=== PATIENT | female | born 1995 | race Hispanic/Latino ===

== ENCOUNTER 2019-03-08 18:50 | Emergency (ER) | payer OTHER, SELFPAY ==
--- OUTSIDE RECORDS SUMMARY | 2019-03-08 18:52 | XMS REPORT | Summary of Care ---
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 Primary Care Provider Reason for Visit Reason Comments NEXPLANON Removal Encounter Details Date Type Department Care Team Description 11/12/2018 Office Visit [facility]- Kenny Gaspar Encounter for surveillance of implantable subdermal contraceptive (Primary Dx); ANDREINA Garcia Nexplanon removal; [address] [place] [address] OCP (oral contraceptive pills) [place] [address] [place], [place] [id number] Allergies No Known Allergiesdocumented as of this encounter (statuses as of 11/13/2018) Medications Medication Sig Dispensed Refills Start Date End Date Status norgestimate-ethinyl Take 1 tablet by 1 Package 3 11/12/2018 Active estradiol (ORTHO mouth daily. TRI-CYCLEN, 28,) 0.18/0.215/0.25 mg-35 mcg (28) tabletIndications: OCP (oral contraceptive pills) initiation documented as of this encounter (statuses as of 11/13/2018) Active Problems Problem Noted Date Encounter for surveillance of implantable subdermal contraceptive 11/08/2018 Class 3 severe obesity with body mass index (BMI) of 40.0 to 44.9 in 2018 adult, unspecified obesity type, unspecified whether serious comorbidity present BMI 40.0-44.9, adult 11/08/2018 Well woman exam 08/24/2017 Nexplanon removal 08/24/2017 Obesity (BMI 30-39.9) 08/24/2017 documented as of this encounter (statuses as of 11/13/2018) Resolved Problems Problem Noted Date Resolved Date Vaginal bleeding before 22 weeks gestation 04/13/2015 08/24/2017 BV (bacterial vaginosis) 04/13/2015 05/16/2015 Supervision of high-risk with insufficient 03/22/2015 08/24/2017 care Obesity complicating 03/22/2015 08/24/2017 Uncertain dates, antepartum 03/22/2015 08/24/2017 Multiparity 03/22/2015 08/24/2017 Abnormal maternal glucose tolerance, antepartum 06/27/2013 03/22/2015 Overview: 1 hr- 146, 3 hr- passed Rubella non-immune status, antepartum 06/27/2013 03/22/2015 Maternal varicella, non-immune 06/27/2013 03/22/2015 Supervision of normal 06/26/2013 03/22/2015 Nausea and vomiting in 06/26/2013 03/22/2015 Overview: Patient recent ER visit records from July 12, 2013. HPI: abdominal cramps after eating x 2 days Patient given Bentyl Oral 10mg po once and IV NS bolus Labs reviewed; WNL Beta over 79,351 Discharged with Dentyl 10 mg PRN q6h for abdominal cramping and Lactulose 30ml PO BID Ketonuria 06/26/2013 09/11/2013 documented as of this encounter (statuses as of 11/13/2018) Immunizations Name Administration Dates Next Due TDAP (ADACEL) VACCINE 05/29/2015 documented as of this encounter Social History Tobacco Use Types Packs/Day Years Used Date Never Smoker Smokeless Tobacco: Never Used Alcohol Use Drinks/Week oz/Week Comments No 0 Standard drinks or equivalent 0.0 Sex Assigned at Date Recorded Not on file Job Start Date Occupation Industry Not on file Not on file Not on file Travel History Travel Start Travel End No recent travel history available. documented as of this encounter Last Filed Vital Signs Vital Sign Reading Time Taken Comments Blood Pressure 117/80 11/12/2018 6:07 PM CDT Pulse 92 11/12/2018 6:07 PM CDT Temperature 36.7 C (98.1 F) 11/12/2018 6:07 PM CDT Respiratory Rate 16 11/12/2018 6:07 PM CDT Oxygen Saturation - - Inhaled Oxygen Concentration - - Weight 99.9 kg (220 lb 5 oz) 11/12/2018 6:07 PM CDT Height 154.9 cm (5' 1") 11/12/2018 6:07 PM CDT Body Mass Index 41.63 11/12/2018 6:07 PM CDT documented in this encounter Progress Notes Kenny Gaspar FNP - 11/12/2018 5:15 PM CDTNexplanon REMOVAL PROCEDURE NOTE Preoperative Diagnoses: Nexplanon Removal The risks, benefits and alternatives were discussed. The patient voiced her understanding. She wished to proceed and an informed consent was obtained. Patient has been identified by name and and will be undergoing Nexplanon removal. Patient is right handed. Patient, procedure and site have been confirmed by the following clinicians: ANDREINA Chatman and Elisa Lucas RN. Timeout performed by ANDREINA Cody at 5:46p.m.. Procedure: The patient is placed on the exam table in a supine position. The implant was palpated onthe inner aspect of the left arm. The Nexplanon implant site is prepped with Betadine. Local area isinjected subcutaneously with 2 cc of lidocaine 1% with epinephrine along the planned incision site. A small incision is made with a sterile scalpel. Curved hemostat is used to access the implant through the incision site. The implant is secured with the hemostat and carefully removed through the incision. There is minimal bleeding from the incision site. Sterile gauze and a pressure dressing is placed over the removal site. The patient tolerated the procedure well and there were no complications. Post-procedure instructions given. Patient verbalized understanding. Findings/Assessment Nexplanon removed without complaints. Patient visualized removal Plan Encounter for surveillance of implantable subdermal contraceptive (primary encounter diagnosis) Nexplanon removal OCP (oral contraceptive pills) initiation Comment: patient desires removal Plan: norgestimate-ethinyl estradiol (ORTHO TRI-CYCLEN, 28,) 0.18/0.215/0.25 mg-35 mcg (28) tablet, POCT TEST Patient desires to start OCPs for contraception. Provider has reviewed risks, benefits and alternatives contraception methods. Provider has also reviewed use, side effects and effectiveness of desires BCM vs other BCM. Encouraged abstinence until menses. Encouraged use of condoms as back up x 1 month and for safer sex. Return to clinic in 12 weeks for blood pressure check and . Discussed treatment options. Medications as ordered. Reviewed patient instructions and provided printed copy. ANDREINA Cody 11/13/2018 12:24 PM documented in this encounter Plan of Treatment Date Type Specialty Care Team Description 02/04/2019 Office Visit [facility] Kenny Gaspar FNP [address] [place] [address] [phone] Health Maintenance Due Date Last Done Comments MENINGOCOCCAL B VACCINES (1 02/17/2006 of 2 - Risk Bexsero 2-dose series) VARICELLA VACCINES (1 of 2 - 02/17/2009 13+ 2-dose series) HPV VACCINES (1 - Female 02/17/2011 3-dose series) INFLUENZA VACCINE (#1) 2018 02/13/2012 CHLAMYDIA SCREENING 11/09/2019 11/08/2018, 08/24/2017, 03/19/2015, Additional history exists PAP SMEAR 08/24/2020 08/24/2017 DTaP,Tdap,and Td Vaccines (2 05/28/2025 05/29/2015 - Td) MENINGOCOCCAL VACCINE Aged Out No longer eligible based on patient's age to complete this topic PNEUMOCOCCAL 0-64 YEARS Aged Out No longer eligible COMBINED SERIES based on patient's age to complete this topic documented as of this encounter Procedures Procedure Name Priority Date/Time Associated Diagnosis Comments POCT Routine 11/12/2018 6:08 OCP (oral Results for this TEST PM CDT contraceptive pills) procedure are in initiation the results section. documented in this encounter Results POCT TEST (11/12/2018 6:08 PM CDT) POCT PREG Negative On board controls acceptable Yes with C Line POCT PREG LOT # POCT PREG TEST DATE Specimen Urine - URINE, CLEAN CATCH documented in this encounter Visit Diagnoses Diagnosis Encounter for surveillance of implantable subdermal contraceptive - Primary Nexplanon removal Surveillance of previously prescribed implantable subdermal contraceptive OCP (oral contraceptive pills) initiation General counseling for prescription of oral contraceptives documented in this encounter Insurance Payer Benefit Plan Subscriber ID Effective Phone Address Type / Group Dates [facility] xxxxxxxxx 2017-Pilar [phone] Medicaid WOMEN nt [address] [place] [address] documented as of this encounter Advance Directives Name Relationship Healthcare Agent Communication Relationship Selene Kato Mother Primary healthcare agent Bala Isbell Significant Other First alternate [phone] healthcare agent (Mobile)
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
--- OUTSIDE RECORDS SUMMARY | 2019-03-08 18:52 | XMS REPORT | Summary of Care ---
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 Primary Care Provider Reason for Visit Reason Comments NEXPLANON Removal Encounter Details Date Type Department Care Team Description 11/12/2018 Office Visit [facility]- Kenny Gaspar Encounter for surveillance of implantable subdermal contraceptive (Primary Dx); ANDREINA Garcia Nexplanon removal; [address] [place] [address] OCP (oral contraceptive pills) initiation [place] [address] [place], [place] [address] Allergies No Known Allergiesdocumented as of this [...] [facility] Kenny Gaspar FNP [address] [place] [address] [phone] Health Maintenance Due Date Last Done Comments [...] Phone Address Type / Group Dates [facility] xxxxxxxxx 2017-Pilar [phone] Medicaid WOMEN nt [address] [place] [address] documented as of this encounter Advance Directives Name Relationship Healthcare Agent Communication Relationship Selene Kato Mother Primary healthcare agent Bala Isbell Significant Other First alternate [phone] healthcare agent (Mobile)
--- OUTSIDE RECORDS SUMMARY | 2019-03-08 18:52 | XMS REPORT | Summary of Care ---
:1995 Author Organization [facility] - Health Address [address] [place] [address] Care Team Providers Name Role Phone [facility]man [facility] Provider Encounter Details Date Type Department Care Team Description 11/08/2018 Orders Only [facility] Doctor Unassigned, No [address] [facility] [place] [address] [address] [place] [address] Allergies No Known Allergiesdocumented as of this encounter (statuses as of 11/08/2018) Medications Medication Sig Dispensed Refills Start Date End Date Status PEPCID 20 mg tablet Take 1 tablet by 20 tablet 0 02/16/2016 Active mouth 2 (two) times daily. ZOFRAN, Take 1 tablet by 14 tablet 0 02/16/2016 Active HYDROCHLORIDE, 4 mg mouth every 12 tablet (twelve) hours. sod Use 1 Bottle in 1 Each 0 04/14/2017 Active fmmbo-pvftcl-jydikz each nostril 2 bottle (NEILMED SINUS (two) times daily. RINSE COMPLETE) pkdv Use in hot shower 1 hour before bedtime promethazine-codeine Take 5 mL by mouth 120 mL 0 04/14/2017 Active 6.25-10 mg/5 mL syrup 4 (four) times daily as needed for Cough. documented as of this encounter (statuses as of 11/08/2018) Active Problems Problem Noted Date Well woman exam 08/24/[address] [...] of this encounter Last Filed Vital Signs Not on filedocumented in this encounter Plan of Treatment Health Maintenance Due Date Last Done Comments [...] Procedure Name Priority Date/Time Associated Diagnosis Comments CONSENT/REFUSAL FOR Routine 11/08/2018 7:56 AM DIAGNOSIS AND TREATMENT CDT ASSIGNMENT OF BENEFITS Routine 11/08/2018 7:56 AM CDT documented in this encounter Results Not on filedocumented in this encounter Insurance Payer Benefit Plan Subscriber ID Effective Phone Address Type / Group Dates [facility] xxxxxxxxx 2017-Pilar [phone] Medicaid WOMEN nt [address] [place] [address] documented as of this encounter Advance Directives Name Relationship Healthcare Agent Communication Relationship Selene Kato Mother Primary healthcare agent Bala Isbell Significant Other First alternate [phone] healthcare agent (Mobile)
--- OUTSIDE RECORDS SUMMARY | 2019-03-08 18:52 | XMS REPORT | Summary of Care ---
:1995 Author Organization [facility] Address [address] [place] [address] Care Team Providers Name Role Phone Kenny Gaspar FINANCE OFFICER Primary Care Provider Reason for Visit Reason Comments Well Woman Exam Encounter Details Date Type Department Care Team Description 11/08/2018 Office Visit [facility]- Kenny Gaspar Well woman exam (no gynecological exam) (Primary Dx); ANDREINA Garcia Encounter for surveillance of implantable subdermal contraceptive; [address]; [place], [place] Screening examination for STD (sexually transmitted disease); [id number] [place] [address] Class 3 severe obesity with body mass index (BMI) of 40.0 to 44.9 in adult, unspecified obesity type, unspecified whether serious comorbidity present; [phone] BMI 40.0-44.9, adult Allergies No Known Allergiesdocumented [...] Bottle 1 Each 0 04/14/2017 11/08/2018 Discontinued iqkjl-awfhlq-qaicd in each z bottle (NEILMED nostril 2 [...] breast self-examination (BSE). These experts include the [place] [employer], the U.S. Preventive Services Task Force, and the [place] [employer]stetric[employer] and Gynecologists. Some experts [...] they are not cancer. Date Last Reviewed: 09/27/201619994127-9541 [employer]. [address] [place], [place] [address]. All rights reserved. This information is not intended as a substitute for professional medical care. Always follow your healthcare professional's instructions. Clinical Breast Exam Many health organizations recommend a yearly clinical breast exam. This exam may be done by a plant facilities technician, family healthcare provider, nurse practitioner, nurse foreign language stenographer, or specially trained nurse. Yearly breast exams [...] Guidelines for having clinical breast exams The [place] [employer]st[employer]ians [employer] Gynec[employer] recommends that [...] is best for you. Date Last Reviewed: 09/27/201619990816-7003 [employer]. [address] [place] [address]. All rights reserved. This information is not [...] may provide some protection. Date Last Reviewed: 01/28/201619990700-1730 [employer]. [address] [place] [address], [place] [address]. All rights reserved. This information is not intended as a substitute for professional medical care. Always follow your healthcare professional's instructions. 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 No uatsdin preference Social History Substance and Sexual Activity Sexual Activity Yes Partners: Male control/protection: Implant Comment: last sexual intercourse 11/05/2018 Labs Labs are pending. Radiology No new radiology. Allergies Carmen has No Known Allergies. Medications Carmen has a current medication list which includes the following prescription( s): promethazine-codeine, sod fivpy-dyrwbv-itftcp bottle, pepcid, and zofran. Review of Systems [...] BCM: Nexplanon 3) LMP: 10/28/2018 4) Last [place]: 11/05/2018 5) Last Pap: 08/24/2017 Results: Negative [...] OB Satellites Kenny Gaspar FNP [address] [place] [address] [phone] Name Type Priority Associated Diagnoses Date/Time GC [...] Phone Address Type / Group Dates [facility] xxxxxxxxx 2017-Prese [phone] Medicaid WOMEN nt 00 [id number] [place] [address] documented as of this encounter Advance Directives Name Relationship Healthcare Agent Communication Relationship Selenegil Kato Mother Primary healthcare agent Bala Isbell Significant Other First alternate [phone] healthcare agent (Mobile)
--- OUTSIDE RECORDS SUMMARY | 2019-03-08 18:52 | XMS REPORT ---
:1995 [facility] Address Replaced by [facility] [place]opes [address] [place] [address] Care Team Providers Name Role Phone Unavailable Unavailable Unavailable Problems This patient has no known problems. Allergies, Adverse Reactions, Alerts This patient has no known allergies or adverse reactions. Medications This patient has no known medications.
--- OUTSIDE RECORDS SUMMARY | 2019-03-08 18:52 | XMS REPORT | Summary of Care ---
:1995 Author Organization [facility] Address [address] [place] [address] Care Team Providers Name Role Phone Kenny Gaspar [facility] Primary Care Provider Reason for Visit Reason Comments Rx Concern/Question b/c Encounter Details Date Type Department Care Team Description 11/13/2018 Telephone [facility]- Kenny Gaspar, Rx Concern/ Question [place] [facility] (b/c ) [address] [facility] [address] [place] [phone] Allergies No Known Allergiesdocumented as of this [...] filedocumented in this encounter Plan of Treatment Date Type Specialty Care Team Description 02/04/2019 Office Visit [facility] Kenny Gaspar, [facility] [address] [place] [address] [phone] Health Maintenance Due Date Last Done Comments [...] Effective Phone Address Type / Group Dates [facility] xxxxxxxxx 2017-Pilar [phone] Medicaid WOMEN nt [address] [place] [address] documented as of this encounter Advance Directives Name Relationship Healthcare Agent Communication Relationship Selene Felipe Mother Primary healthcare agent Bala Isbell Significant Other First alternate [phone] healthcare agent (Mobile)
--- OUTSIDE RECORDS SUMMARY | 2019-03-08 18:53 | XMS REPORT | Summary of Care ---
:1995 Author Organization [facility] Address [address] [place] [address] Care Team Providers Name Role Phone Kenny Gaspar [facility] Primary Care Provider Reason for Visit Reason Comments Assessment for a few days has been feeling weak and nauseaous Rx Concern/Question asking if control makes her feel nauseous and weak Encounter Details Date Type Department Care Team Description 11/15/2018 Telephone [facility]- Kenny Gaspar, Assessment ( for a few [facility] days has been feeling [address] weak and nauseaous); [place] [address] Rx Concern/Question [id number] (asking if [phone] control makes her feel nauseous and weak) Allergies No Known Allergiesdocumented as of this encounter (statuses as of 11/15/2018) Medications Medication Sig Dispensed Refills Start Date End Date Status norgestimate-ethinyl Take 1 tablet by 1 Package 3 11/12/2018 Active estradiol (ORTHO mouth daily. TRI-CYCLEN, 28,) 0.18/0.215/0.25 mg-35 mcg (28) tabletIndications: OCP (oral contraceptive pills) initiation documented as of this encounter (statuses as of 11/15/2018) Active Problems Problem Noted Date Encounter for surveillance of implantable subdermal contraceptive 11/08/2018 Class 3 severe obesity with body mass index (BMI) of 40.0 to 44.9 in 2018 adult, unspecified obesity type, unspecified whether serious comorbidity present BMI 40.0-44.9, adult 11/08/2018 Well woman exam 08/24/2017 Nexplanon removal 08/24/2017 Obesity (BMI 30-39.9) 08/24/2017 documented as of this encounter (statuses as of 11/15/2018) Resolved Problems Problem Noted Date Resolved Date [...] as of this encounter (statuses as of 11/15/2018) Immunizations Name Administration Dates Next Due TDAP [...] Care Team Description 02/04/2019 Office Visit [facility] Kenny Gaspar, REPORTING CONSULTANT [address] [place] [address] [phone] Health Maintenance Due Date Last Done Comments [...] Effective Phone Address Type / Group Dates [facility] xxxxxxxxx 2017-Pilar [phone] Medicaid WOMEN nt [id number] [place] [address] documented as of this encounter Advance Directives Name Relationship Healthcare Agent Communication Relationship Selene Felipe Mother Primary healthcare agent Bala Isbell Significant Other First alternate [phone] healthcare agent (Mobile)
[2019-03-08 20:40] LABS: Absolute Lymphocytes (CBC) 2.8 K/uL (0.7-4.9); Basophils % 0.5 % (0-1.3); Hematocrit 37.2 % (36.0-45.0); Lymphocytes % 29.5 % (15.3-44.8); MPV 8.7 fL (7.6-11.3)
[2019-03-08 20:49] LABS: Urine Appearance CLOUDY; Urine Bilirubin NEGATIVE (NEG); Urine Blood 3+ (NEG); Urine Color RED; Urine Glucose NEGATIVE (NEG); Urine Microscopic Reflex ORDER UMIC; Urine Protein 2+ (NEG); Urine Urobilinogen 0.2 mg/dL (0.2-1.0); Urine pH 6.5 (5.0-7.0)
[2019-03-08 20:54] LABS: Urine Bacteria 20-50 /HPF (<20); Urine RBC LOADED /HPF (NONE SEEN)
[2019-03-08 20:55] LABS: Urine Culture Reflex Order REFLEXED
[2019-03-08 21:12] LABS: Potassium 3.6 mmol/L (3.5-5.1)
--- NOTE | 2019-03-08 22:25 | EDPHYS ---
Physician Documentation [facility] Name: Carmen Ojeda Age: 24 yrs Sex: Female : 1995 Arrival Date: 03/08/2019 Time: 18:52 Bed 27 Private MD: ED Physician Carlos Fields HPI: 03/08 21:06 This 24 yrs old Female presents to ER via Wheelchair with complaints of pm1 Abdominal Pain, 7 WKS . 21:06 The patient presents with abdominal pain in the lower abdomen. pm1 21:06 Onset: The symptoms/episode began/occurred 3 day(s) ago. The symptoms do not radiate. pm1 Associated signs and symptoms: Pertinent positives: vaginal bleeding, Pertinent negatives: nausea, vomiting, and diarrhea, dysuria, fever. The symptoms are described as crampy. Modifying factors: The symptoms are alleviated by nothing, the symptoms are aggravated by nothing. Severity of pain: in the emergency department the pain is actually worse. Seen at [place] ER yesterday for the same complaint and diagnosed with threatened miscarriage. Saw Brake Assembler Dr. Davis today and was given Rocephin shot for gonorrhea. Told by Ryan that she was likely have a miscarriage.. SHAKER OPERATOR: 19:26 LMP 01/18/2019 ca1 Historical: - Allergies: 19:26 No Known Allergies; ca1 - Home Meds: 19:26 Vitamin Oral [Active]; ca1 - PMHx: 19:26 None; ca1 - PSHx: 19:26 None; ca1 - Immunization history:: Adult Immunizations up to date. - Social history:: Smoking status: Patient/guardian denies using tobacco. - Ebola Screening: : Patient negative for fever greater than or equal to 101.5 degrees Fahrenheit, and additional compatible Ebola Virus Disease symptoms Patient denies exposure to infectious person Patient denies travel to an Ebola-affected area in the 21 days before illness onset No symptoms or risks identified at this time. ROS: 21:06 Constitutional: Negative for fever, chills, and weight loss, Neck: Negative for injury, pm1 pain, and swelling, Cardiovascular: Negative for chest pain, palpitations, and edema, Respiratory: Negative for shortness of breath, cough, wheezing, and pleuritic chest pain. 21:06 Back: Negative for injury and pain. 21:06 MS/Extremity: Negative for injury and deformity, Skin: Negative for injury, rash, and discoloration, Neuro: Negative for headache, weakness, numbness, tingling, and seizure. 21:06 Abdomen/GI: Positive for abdominal cramps, Negative for nausea, vomiting, and diarrhea. 21:06 : Positive for vaginal bleeding, Negative for urinary symptoms. Exam: 21:06 Constitutional: This is a well developed, well nourished patient who is awake, alert, pm1 and in no acute distress. Head/Face: Normocephalic, atraumatic. Chest/axilla: Normal chest wall appearance and motion. Nontender with no deformity. No lesions are appreciated. Cardiovascular: Regular rate and rhythm with a normal S1 and S2. No gallops, murmurs, or rubs. Normal PMI, no JVD. No pulse deficits. Respiratory: Lungs have equal breath sounds bilaterally, clear to auscultation and percussion. No rales, rhonchi or wheezes noted. No increased work of breathing, no retractions or nasal flaring. 21:06 Back: No spinal tenderness. No costovertebral tenderness. Full range of motion. Skin: Warm, dry with normal turgor. Normal color with no rashes, no lesions, and no evidence of cellulitis. MS/ Extremity: Pulses equal, no cyanosis. Neurovascular intact. Full, normal range of motion. 21:06 Abdomen/GI: Inspection: obese Bowel sounds: normal, Palpation: abdomen is soft and non-tender, in all quadrants, mass, is not appreciated, rebound tenderness, is not appreciated. 21:06 Neuro: Orientation: is normal, Motor: is normal, moves all fours, Gait: is steady, at a normal pace, without difficulty. Vital Signs: 19:26 BP 121 / 84; Pulse 98; Resp 17 S; Temp 97.9(TE); Pulse Ox 99% on R/A; Weight 100.7 kg ca1 (R); Height 5 ft. 1 in. (154.94 cm) (R); Pain 9/10; 20:41 BP 100 / 66; Pulse 99; Resp 18; Pulse Ox 98% on NC; mg2 19:26 Body Mass Index 41.95 (100.70 kg, 154.94 cm) ca1 MDM: 20:09 Patient medically screened. pm1 22:22 Data reviewed: vital signs. Data interpreted: Pulse oximetry: on room air is 98 %. pm1 Interpretation: normal. Counseling: I had a detailed discussion with the patient and/or guardian regarding: the historical points, exam findings, and any diagnostic results supporting the discharge/admit diagnosis, lab results, radiology results, the need for outpatient follow up, to return to the emergency department if symptoms worsen or persist or if there are any questions or concerns that arise at home. 03/08 20:08 Order name: Quantitative Hcg; Complete Time: 22:21 pm1 03/08 20:08 Order name: Abo/rh Typing; Complete Time: 22:21 pm1 03/08 20:08 Order name: Basic Metabolic Panel; Complete Time: 22:21 pm1 03/08 20:08 Order name: CBC with Diff; Complete Time: 22:21 pm1 03/08 20:45 Order name: Urinalysis; Complete Time: 22: EDMI 03/08 20:50 Order name: Urine Microscopic Only; Complete Time: 22:21 EDMI 03/08 20:08 Order name: Urine Test (obtain specimen); Complete Time: 20:13 pm1 03/08 20:08 Order name: IV Saline Lock; Complete Time: 20:36 pm1 03/08 20:08 Order name: Labs collected and sent; Complete Time: 20:36 pm1 03/08 20:08 Order name: NPO; Complete Time: 20:12 pm1 03/08 20:08 Order name: Urine Dipstick-Ancillary (obtain specimen); Complete Time: 20:13 pm1 03/08 20:36 Order name: US Transvaginal Ob pm1 03/08 20:56 Order name: Urine Culture EDMS Administered Medications: 22:38 Drug: Rocephin 1 grams Route: IV; Rate: calculated rate; Site: right antecubital; aa1 22:45 Follow up: IV Status: Completed infusion aa1 Disposition: 03/09 00:06 Co-signature as Attending Physician, Carlos Fields MD I agree with the assessment and kdr plan of care. Disposition: 03/08/19 22:23 Discharged to Home. Impression: Threatened , Urinary tract infection, site not specified. - Condition is Stable. - Discharge Instructions: Threatened Miscarriage, and Urinary Tract Infection, Pelvic Rest. - Prescriptions for Macrobid 100 mg Oral Capsule - take 1 capsule by ORAL route every 12 hours for 10 days; 20 capsule. - Medication Reconciliation Form, Thank You Letter, Antibiotic Education, Prescription Opioid Use form. - Follow up: Emergency Department; When: As needed; Reason: Worsening of condition. Follow up: Private Physician; When: 2 - 3 days; Reason: Recheck today's complaints, Continuance of care, Re-evaluation by your physician. - Problem is new. - Symptoms have improved. Signatures: Dispatcher [employer] EDMona Brewster RN RN aa1 Carlos Fields MD MD kdr Marinas, Patrick, NP DECK BUILDER pm1 Stephanie Mcgregor RN RN ca1 Corrections: (The following items were deleted from the chart) 03/08 22:46 22:23 03/08/2019 22:23 Discharged to Home. Impression: Threatened ; Urinary aa1 tract infection, site not specified. Condition is Stable. Forms are Medication Reconciliation Form, Thank You Letter, Antibiotic Education, Prescription Opioid Use. Follow up: Emergency Department; When: As needed; Reason: Worsening of condition. Follow up: Private Physician; When: 2 - 3 days; Reason: Recheck today's complaints, Continuance of care, Re-evaluation by your physician. Problem is new. Symptoms have improved. pm1
--- NOTE | 2019-03-08 22:25 | ER ---
Nurse's Notes [facility] Name: Carmen Ojeda Age: 24 yrs Sex: Female : 1995 Arrival Date: 03/08/2019 Time: 18:52 Bed 27 Private MD: Diagnosis: Threatened ;Urinary tract infection, site not specified Presentation: 03/08 19:22 Presenting complaint: Patient states: Cramping at lower abdomen started 3 days ago and ca1 has gotten worse today. Bleeding a little bit heavier today, bleeding x a few days. weeks today. Denies N/V/Fever. Reports diarrhea x 3 days. I went to [place] ER yesterday and my doctor today, they said I have a threatened but the pain has gotten worse tonight. Transition of care: patient was not received from another setting of care. Onset of symptoms was March 08, 2019. Risk Assessment: Do you want to hurt yourself or someone else? Patient reports no desire to harm self or others. Initial Sepsis Screen: Does the patient meet any 2 criteria? No. Patient's initial sepsis screen is negative. Does the patient have a suspected source of infection? No. Patient's initial sepsis screen is negative. Care prior to arrival: None. 19:22 Method Of Arrival: Wheelchair ca1 19:22 Acuity: TEJAS 3 ca1 OPTICAL MODEL MAKER AND TESTER: 19:26 LMP 01/18/2019 ca1 Historical: - Allergies: 19:26 No Known Allergies; ca1 - Home Meds: 19:26 Vitamin Oral [Active]; ca1 - PMHx: 19:26 None; ca1 - PSHx: 19:26 None; ca1 - Immunization history:: Adult Immunizations up to date. - Social history:: Smoking status: Patient/guardian denies using tobacco. - Ebola Screening: : Patient negative for fever greater than or equal to 101.5 degrees Fahrenheit, and additional compatible Ebola Virus Disease symptoms Patient denies exposure to infectious person Patient denies travel to an Ebola-affected area in the 21 days before illness onset No symptoms or risks identified at this time. Screenin:40 Abuse screen: Denies threats or abuse. Denies injuries from another. Nutritional mg2 screening: No deficits noted. Tuberculosis screening: No symptoms or risk factors identified. Fall Risk IV access (20 points). Assessment: 20:38 General: Appears in no apparent distress. comfortable, Behavior is calm, cooperative. mg2 Pain: Complains of pain in abdomen Pain does not radiate. Pain currently is 8 out of 10 on a pain scale. Quality of pain is described as aching, Pain began gradually, Is intermittent. Neuro: Level of Consciousness is awake, alert, obeys commands, Oriented to person, place, time, situation. Cardiovascular: Capillary refill < 3 seconds Patient's skin is warm and dry. Respiratory: Airway is patent Respiratory effort is even, unlabored, Respiratory pattern is regular, symmetrical. GI: Bowel sounds present X 4 quads. Abd is soft and non tender. : Reports vaginal bleeding that is light flow. EENT: No signs and/or symptoms were reported regarding the EENT system. Derm: Skin is intact, is healthy with good turgor, Skin is pink, warm \T\ dry. normal. Musculoskeletal: Circulation, motion, and sensation intact. Capillary refill < 3 seconds. 22:45 Reassessment: Patient appears in no apparent distress at this time. Patient is alert, aa1 oriented x 3, equal unlabored respirations, skin warm/dry/pink. Discussed d/c \T\ f/u instructions with pt; denies questions or concerns at this time. Ambulatory to lobby with steady gait Patient states feeling better. Vital Signs: 19:26 BP 121 / 84; Pulse 98; Resp 17 S; Temp 97.9(TE); Pulse Ox 99% on R/A; Weight 100.7 kg ca1 (R); Height 5 ft. 1 in. (154.94 cm) (R); Pain 9/10; 20:41 BP 100 / 66; Pulse 99; Resp 18; Pulse Ox 98% on NC; mg2 19:26 Body Mass Index 41.95 (100.70 kg, 154.94 cm) ca1 ED Course: 18:52 Patient arrived in ED. jg7 19:26 Triage completed. ca1 19:26 Arm band placed on right wrist. ca1 20:08 Alexis Camacho NP is PHCP. pm1 20:08 Carlos Fields MD is Attending Physician. pm1 20:09 Dino Overton RN is Primary Nurse. mg2 20:40 Inserted saline lock: 20 gauge in right antecubital area, using aseptic technique. mg2 Blood collected. 20:41 Patient has correct armband on for positive identification. Pulse ox on. NIBP on. Door mg2 closed. Warm blanket given. 21:15 Urine Culture Sent. mg2 21:44 US Transvaginal Ob In Process Unspecified. EDMS 22:45 No provider procedures requiring assistance completed. IV discontinued, intact, aa1 bleeding controlled, No redness/swelling at site. Pressure dressing applied. Administered Medications: 22:38 Drug: Rocephin 1 grams Route: IV; Rate: calculated rate; Site: right antecubital; aa1 22:45 Follow up: IV Status: Completed infusion aa1 Outcome: 22:23 Discharge ordered by MD. pm1 22:45 Discharged to home ambulatory, with significant other. aa1 22:45 Condition: good 22:45 Discharge instructions given to patient, significant other, Instructed on discharge instructions, follow up and referral plans. medication usage, Demonstrated understanding of instructions, follow-up care, medications, Prescriptions given X 1. 22:46 Patient left the ED. aa1 Signatures: Dispatcher [employer] EDAR Mona Hong RN RN aa1 Alexis Camacho, RIP/MOULD OPERATOR RIP/MOULD OPERATOR pm1 Dino Overton RN RN mg2 Stephanie Mcgregor RN RN ca1 Emelina Oemr7
[2019-03-08] MEDS ORDERED: CEFTRIAXONE/SWI 1gm 1 GM/10 ML SYR ONE (22:38)
[2019-03-08 23:05] VITALS: TEMP 97.9
[2019-03-08 23:06] VITALS: BP 100/66; O2SAT 98
--- NOTE | 2019-03-09 07:52 | RAD REPORT ---
EXAM DESCRIPTION: US - Transvaginal OB - 03/08/2019 9:43 pm CLINICAL HISTORY: VAGINAL BLEEDING, pelvic pain COMPARISON: No relevant comparisons TECHNIQUE: Endovaginal sonography performed. FINDINGS: Uterus is normal size. No myometrial abnormality. Endometrial tissue is heterogeneous. The re is a 10 millimeter irregularly-shaped cystic mass in the fundal portion of the endometrial cavity. This is potentially a gestational sac. However, there is no evidence for yolk sac or pole. Normal blood flow seen in the left ovary. No left adnexal mass identified. Right ovary is not clearly seen due to bowel. No right adnexal mass. No blood or fluid in the cul de sac. IMPRESSION: No viable IUP is identifiable. There is a 10 millimeter irregularly shaped cystic mass i n the fundal endometrial cavity that is potentially a gestational sac. Miscarriage is most likely. Follow-up sonography could be performed if serial bHCG values show rising values.
== END 2019-03-08 22:46 | disposition home or self-care (01) ==
LOC: ER 18:50
DX: O20.0 Threatened abortion (principal); O23.41 Unspecified infection of urinary tract in pregnancy, first trimester; Z3A.01 Less than 8 weeks gestation of pregnancy
CPT/HCPCS: 87088; 85025; 87086; 80048; 36415; 86900; 86901; 84702; 76817; 96374; 99284; J0696; 81003; 81015